=== PATIENT | female | born 1945 | race Caucasian/White ===

== ENCOUNTER 2018-10-23 06:06 | Inpatient (IN) | payer OTHER, BC ==
[2018-10-09 13:25] VITALS: BMI 29.2
[~2018-10-23 06:06] MED LIST: GABAPENTIN 300 MG CAPSULE (FP) PO ONE; ROPIVICAINE 0.2%/MORPH PF/KETOROLAC - 51ML DISP.SYRINGE IA ONE; TRANEXAMIC ACID 1000 MG/10 ML VIAL IVPB ONE; VANCOMYCIN 1,000 MG VIAL (RESTRICTED TO ID ONLY) IVPB ONE; oxyCODONE HCL 10 MG SUSTAINED ACTING TABLET PO ONE
[2018-10-23] MEDS ORDERED: GABAPENTIN 300 MG CAPSULE (FP) ONE (06:52)
[2018-10-23] MEDS ORDERED: PANTOPRAZOLE 40 MG TABLET (FP) ONE (06:52)
[2018-10-23] MEDS ORDERED: CELECOXIB 200 MG CAPSULE ONE (06:52)
[2018-10-23] MEDS ORDERED: oxyCODONE HCL 10 MG SUSTAINED ACTING TABLET ONE (06:53)
[2018-10-23] MEDS ORDERED: MIDAZOLAM HCL 2 MG/2 ML SINGLE DOSE VIAL ONE (07:02)
[2018-10-23] MEDS ORDERED: EPINEPHrine/PF 1 MG/1 ML (1:1,000) AMPULE ONE ×2 (07:02→08:32)
[2018-10-23] MEDS ORDERED: DEXAMETHASONE SOD PHOSPHATE/PF 10 MG/ML SDV ONE (07:02)
[2018-10-23] MEDS ORDERED: ROPIVACAINE HCL 0.5% 30ML VIAL ONE (07:02)
--- NOTE | 2018-10-23 07:25 | HP ---
Admitting History and Physical - Admission Chief Complaint: left hip osteoarthritis x years History of Present Illness: 72-year-old female presents in regard to her left hip. Long-standing history of left hip osteoarthritis. Patient complains of pain, limited range of motion, difficulty ambulating, and difficulty completing activities of daily living. Patient has failed conservative treatment measures including PO medications, injections, exercise programs, and activity modifications. At this point, patient would like to proceed with surgical intervention left total hip arthroplasty - MAKOplasty. History Source: Patient - Past Medical History Gastrointestinal: Yes: GERD - Past Surgical History Additional Past Surgical History: see written history and physical. - Advance Directives Advance Directives: Yes: Health Care Proxy - Smoking History Smoking history: Former smoker Have you smoked in the past 12 months: No If you are a former smoker, when did you quit?: 1975 - Alcohol/Substance Use Hx Alcohol Use: Yes (3 WKLY) Home Medications - Allergies Allergies/Adverse Reactions: Allergies Allergy/AdvReac Type Severity Reaction Status Date / Time nickel Allergy Intermediate NASAL Verified 10/23/18 07:19 CONGESTION No Known Drug Allergies Allergy Verified 10/09/18 13:09 - Home Medications Home Medications: Ambulatory Orders Calcium Carbonate [Tums] 200 mg PO PRN PRN 10/09/18 Famotidine [Pepcid -] 20 mg PO HS 10/09/18 Omeprazole 20 mg PO DAILY 10/09/18 Physical Examination Constitutional: Yes: Well Nourished, No Distress Eyes: Yes: Conjunctiva Clear HENT: Yes: Atraumatic Neck: Yes: Supple Cardiovascular: Yes: Regular Rate and Rhythm Respiratory: Yes: Regular Gastrointestinal: Yes: Soft ...Rectal Exam: Yes: Deferred Musculoskeletal: Yes: Joint Stiffness (left hip) Assessment/Plan 72-year-old female presents in regard to her left hip. Long-standing history of left hip osteoarthritis. Patient complains of pain, limited range of motion, difficulty ambulating, and difficulty completing activities of daily living. Patient has failed conservative treatment measures including PO medications, injections, exercise programs, and activity modifications. At this point, patient would like to proceed with surgical intervention left total hip arthroplasty - MAKOplasty. Pros, cons, risks, benefits, and alternatives of a left total hip arthroplasty were discussed with the patient at length. Patient confirms her understanding and consent to proceed with a left total hip arthroplasty MAKOplasty.
[2018-10-23] MEDS ORDERED: VANCOMYCIN 1,000 MG VIAL (RESTRICTED TO ID ONLY) ONE (07:32)
[2018-10-23] MEDS ORDERED: ceFAZolin SODIUM 1 GM VIAL ONE ×2 (07:32→08:45)
[2018-10-23] MEDS ORDERED: TRANEXAMIC ACID 1000 MG/10 ML VIAL ONE ×3 (07:32→10:49)
[2018-10-23] MEDS ORDERED: BUPIVACAINE HCL/PF 0.5% (5MG/ML) 10 ML VIAL ONE (08:25)
[2018-10-23] MEDS ORDERED: ROPIVICAINE 0.2%/MORPH PF/KETOROLAC - 51ML DISP.SYRINGE IA ONE ×4 (08:28→11:13)
[2018-10-23] MEDS ORDERED: CELECOXIB 200 MG CAPSULE PO ONE (08:45)
[2018-10-23] MEDS ORDERED: PANTOPRAZOLE 40 MG TABLET (FP) PO ONE (08:45)
[2018-10-23] MEDS ORDERED: SODIUM CHLORIDE 0.9% P/F 10 ML VIAL IJ ONE (08:45)
[2018-10-23] MEDS ORDERED: CEFAZOLIN 2 GM in DEXTROSE 5%-WATER - 50 ML IVPB ONE (08:45)
[2018-10-23] MEDS ORDERED: TRANEXAMIC ACID 1000 MG/10 ML VIAL IVPUSH ONE (08:45)
[2018-10-23] MEDS ORDERED: PROPOFOL 20 ML ONE ×3 (08:51)
[2018-10-23] MEDS ORDERED: ePHEDrine SULFATE 50 MG/1 ML AMPULE ONE (09:32)
[2018-10-23] MEDS ORDERED: VANCOMYCIN 1,000 MG VIAL (RESTRICTED TO ID ONLY) IVPB ONE (11:00)
[2018-10-23] MEDS ORDERED: TRANEXAMIC ACID 1000 MG/10 ML VIAL IVPB ONE (11:14)
[2018-10-23] MEDS ORDERED: PROMETHAZINE HCL 25 MG/1 ML VIAL IVPUSH PRN (11:22)
[2018-10-23] MEDS ORDERED: ONDANSETRON 4 MG/2 ML VIAL IVPUSH PRN ×2 (11:22→12:32)
--- NOTE | 2018-10-23 12:29 | OP ---
Operative Note - Note: Operative Date: 10/23/18 Pre-Operative Diagnosis: left hip OA Operation: left JODI DAVID Post-Operative Diagnosis: Same as Pre-op Surgeon: Chano Paez Workforce Manager: eJnnifer Lorenz Anesthesia: Spinal Estimated Blood Loss (mls): 200
[2018-10-23] MEDS ORDERED: CALCIUM CARBONATE 200 MG PO PRN (12:30)
[2018-10-23] MEDS ORDERED: ACETAMINOPHEN 1000 MG/100 ML VIAL (NON FORMULARY) IVPB ONE (12:31)
[2018-10-23] MEDS ORDERED: MAGNESIUM HYDROX 2400MG/30ML ORAL SUSPENSION 30 ML CUP PO PRN (12:32)
[2018-10-23] MEDS ORDERED: MAG HYDROX/AL HYDROX/SIMETH 30 ML UNIT-DOSE CUP PO PRN (12:32)
[2018-10-23] MEDS ORDERED: KETOROLAC TROMETHAMINE 30 MG/1 ML VIAL ONE (12:39)
[2018-10-23] MEDS ORDERED: ACETAMINOPHEN INJECTION 100 ML IVPB ONE (12:39)
[2018-10-23] MEDS ORDERED: traMADol HCL 50 MG TABLET ONE (12:39)
[2018-10-23] MEDS: KETOROLAC TROMETHAMINE 30 MG/1 ML VIAL IVPUSH SCH ×2 (12:45→17:56)
[2018-10-23] MEDS: traMADol HCL 50 MG TABLET PO SCH ×2 (12:45→17:55)
[2018-10-23] MEDS: LACTATED RINGERS SOLUTION 1,000 ML IV SCH ×3 (13:15→14:03)
[2018-10-23] MEDS: CEFAZOLIN 2 GM/D5W 2 GM/50 ML ML IVPB SCH (16:40)
[2018-10-23] MEDS ORDERED: DEXAMETHASONE SOD PHOSPHATE 10 MG/1 ML VIAL IVPB ONE (20:00)
[2018-10-23] MEDS: GABAPENTIN 300 MG CAPSULE (FP) PO SCH (21:17)
[2018-10-23] MEDS: SENNOSIDES/DOCUSATE COMBO (SENNA PLUS) TABLET (UD) PO SCH (21:17)
[2018-10-23] MEDS: CELECOXIB 200 MG CAPSULE PO SCH (21:17)
[2018-10-23] MEDS: ASCORBIC ACID 500 MG TABLET (FP) PO SCH (21:17)
[2018-10-23] MEDS: FAMOTIDINE 20 MG TABLET PO SCH (21:17)
[2018-10-24] MEDS: KETOROLAC TROMETHAMINE 30 MG/1 ML VIAL IVPUSH SCH ×2 (00:40→06:46)
[2018-10-24] MEDS: traMADol HCL 50 MG TABLET PO SCH ×5 (00:50→18:39)
[2018-10-24] MEDS: CEFAZOLIN 2 GM/D5W 2 GM/50 ML ML IVPB SCH (01:00)
[2018-10-24] MEDS ORDERED: VANCOMYCIN 1,000 MG VIAL (RESTRICTED TO ID ONLY) ONE (07:06)
[2018-10-24] MEDS: ASPIRIN 325 MG TABLET PO SCH (07:17)
[2018-10-24 07:50] LABS: CALCIUM 9.3 mg/dl (8.5-10); CREATININE 0.8 mg/dl (0.55-1.3); POTASSIUM 4.4 mmol/L (3.5-5.1)
[2018-10-24 08:10] LABS: HEMATOCRIT 36.5 % (32.4-45.2); HEMOGLOBIN 12.5 GM/dl (10.7-15.3); MCH 31.1 pg (25.7-33.7); MCHC 34.2 g/dl (32.0-36.0); MEAN CELL VOLUME 90.9 fl (80-96); PLATELET COUNT 275 K/MM3 (134-434); RBC 4.01 M/mm3 (3.60-5.2); RDW 13.9 % (11.6-15.6); WHITE BLOOD COUNT 7.9 K/mm3 (4.0-10.8)
[2018-10-24] MEDS: PANTOPRAZOLE 40 MG TABLET (FP) PO SCH (09:10)
[2018-10-24] MEDS: MULTIVITAMINS (DAILY MVI) TABLET (FP) PO SCH (09:10)
[2018-10-24] MEDS: SENNOSIDES/DOCUSATE COMBO (SENNA PLUS) TABLET (UD) PO SCH ×2 (09:10→21:27)
[2018-10-24] MEDS: CELECOXIB 200 MG CAPSULE PO SCH ×2 (09:10→21:27)
[2018-10-24] MEDS: ASCORBIC ACID 500 MG TABLET (FP) PO SCH ×2 (09:10→21:27)
[2018-10-24] MEDS: GABAPENTIN 300 MG CAPSULE (FP) PO SCH ×2 (09:10→21:27)
--- NOTE | 2018-10-24 11:50 | PN ---
Progress Note (short form) - Note Progress Note: ANESTHESIA POSTOP 72 YO FEMALE POD #1 S/P L DAVID, SPINAL AND PNB Patient sitting in chair. Comfortable. Pain adequately controlled. No n/v. VSS, Afebrile Continue current care. Encouraged IS and PT participation. No anesthetic complications
[2018-10-24] MEDS: LACTATED RINGERS SOLUTION 1,000 ML IV SCH (12:16)
[2018-10-24] MEDS ORDERED: traMADol HCL 50 MG TABLET PO ONE (20:00)
--- NOTE | 2018-10-24 20:12 | PN ---
Progress Note (short form) - Note Progress Note: Pt seen and examined. Doing well. AVSS Selected Entries 10/24/18 14:10 Temperature 97.5 F L Pulse Rate 72 Respiratory 20 Rate Blood Pressure 111/56 L O2 Sat by Pulse 95 Oximetry (%) Laboratory Tests 10/24/18 10/24/18 07:00 07:00 WBC 7.9 Hgb 12.5 Hct 36.5 Plt Count 275 Sodium 137 Potassium 4.4 Chloride 105 Carbon Dioxide 22 Anion Gap 10 BUN 18.0 Creatinine 0.8 Gen: NAD LLE: c/d/i, NVID A/P POD#1 s/p L DAVID PT/OOB D/C home in AM
--- NOTE | 2018-10-24 20:17 | DS ---
Physical Examination Vital Signs: Vital Signs Temperature 97.5 F L 10/24/18 14:10 Pulse Rate 72 10/24/18 14:10 Respiratory Rate 20 10/24/18 14:10 Blood Pressure 111/56 L 10/24/18 14:10 O2 Sat by Pulse Oximetry (%) 95 10/24/18 14:10 Labs: CBC, BMP 10/24/18 07:00 10/24/18 07:00 Discharge Summary Reason For Visit: LEFT HIP OSTEOARTHRITIS Current Active Problems Osteoarthritis of left hip (Acute) Procedures: Principal: left lachelle DAVID Hospital Course: Admitted for elective surgery. Procedure performed without complications. Pt received postoperative antibiotic prophylaxis and DVT ppx. Ambulated with physical therapy. Stable for discharge home with outpatient followup. Condition: Stable - Instructions Diet, Activity, Other Instructions: Dr Paez - Hip Replacement Instructions Keep the Aquacel dressing on until removed by Dr. Paez in 10-14 days - it is antibacterial and waterproof and you can shower with it on. Call the office for a follow-up appointment with Dr. Paez in 10-14 days. [phone] Take one enteric-coated Aspirin 325mg daily for 6 weeks to prevent blood clots in your legs. Continue taking Omeprazole 40mg daily to protect against heartburn and ulcers. Take Cephalexin (antibiotic) 3x/day for 10 days to help prevent skin infection. Take Celebrex 200mg daily for 30 days to reduce swelling and inflammation. Take a multivitamin, stool softener and extra Vitamin C supplement daily. For pain: *Mild pain (1-3/10): Take 1 Tramadol tablet every 4 hours as needed. Moderate pain (4-6/10): Take 1 Tramadol tablet and 1 Percocet tablet every 4 hours as needed. Severe pain (7-10/10): Take 1 Tramadol tablet and 2 Percocet tablets every 4 hours as needed. Activity: You can put as much weight on the operative leg as you want. For the first 6 weeks, all you need to do is walk around the house, go up/down stairs, and sit down/get up. After 6 weeks when everything is healed (and bone has grown into the implant) you will be sent for more intensive outpatient physical therapy. Always use a walker or cane for balance and to prevent falls. Expect to see swelling / bruising from the operative site all the way down to your toes. Wear the Compression stocking on the operative side during the day to minimize how much swelling there is in your foot/ankle. Don't wear the stocking at night. You don't have to wear the stocking on the other side. Disposition: [facility]/HOME HEALTH CARE - Home Medications Comprehensive Discharge Medication List: Ambulatory Orders Calcium Carbonate [Tums] 200 mg PO PRN PRN 10/09/18 Famotidine [Pepcid -] 20 mg PO HS 10/09/18 Omeprazole 20 mg PO DAILY 10/09/18 Ascorbic Acid [Vitamin C -] 500 mg PO BID tablet 10/24/18 Aspirin [ASA -] 325 mg PO DAILY@0800 tablet 10/24/18 Celecoxib [CeleBREX -] 200 mg PO DAILY #30 capsule 10/24/18 Cephalexin Monohydrate [Keflex -] 500 mg PO TID #30 capsule 10/24/18 Multivitamins [Multivit ([facility] Formulary)] 1 tab PO DAILY tab 10/24/18 Oxycodone HCl/Acetaminophen [Percocet 5-325 mg Tablet] 1 - 2 tab PO Q4H PRN #60 tablet MDD 10 10/24/18 Sennosides/Docusate Sodium [Pericolace -] 2 tablet PO BID tablet 10/24/18 traMADol HCL [Ultram -] 50 mg PO Q4H PRN #42 tablet MDD 6 10/24/18
[2018-10-24] MEDS: FAMOTIDINE 20 MG TABLET PO SCH (21:27)
[2018-10-25] MEDS: traMADol HCL 50 MG TABLET PO SCH ×3 (00:30→13:58)
[2018-10-25] MEDS: ASPIRIN 325 MG TABLET PO SCH (08:21)
[2018-10-25 08:39] LABS: HEMATOCRIT 33.5 % (32.4-45.2); HEMOGLOBIN 11.2 GM/dl (10.7-15.3); MCHC 33.5 g/dl (32.0-36.0); MEAN CELL VOLUME 92.3 fl (80-96); MEAN PLT VOLUME 9.3 fl (7.5-11.1); PLATELET COUNT 230 K/MM3 (134-434); RBC 3.63 M/mm3 (3.60-5.2); RDW 14.2 % (11.6-15.6); WHITE BLOOD COUNT 8.6 K/mm3 (4.0-10.8)
[2018-10-25] MEDS: CELECOXIB 200 MG CAPSULE PO SCH (10:02)
[2018-10-25] MEDS: MULTIVITAMINS (DAILY MVI) TABLET (FP) PO SCH (10:02)
[2018-10-25] MEDS: SENNOSIDES/DOCUSATE COMBO (SENNA PLUS) TABLET (UD) PO SCH (10:02)
[2018-10-25] MEDS: PANTOPRAZOLE 40 MG TABLET (FP) PO SCH (10:02)
[2018-10-25] MEDS: ASCORBIC ACID 500 MG TABLET (FP) PO SCH (10:02)
[2018-10-25] MEDS: GABAPENTIN 300 MG CAPSULE (FP) PO SCH (10:02)
[2018-10-25] MEDS: LACTATED RINGERS SOLUTION 1,000 ML IV SCH (13:58)
[2018-10-25 14:15] VITALS: BP 108/58; PULSE 62; TEMP 98.4
--- NOTE | 2018-10-27 12:47 | PATH ---
Surgical Pathology Report Patient Name: RIVAS SHIPLEY Med. Rec. #: [id number] /Age/Gender: 1945 (Age: 72) / F Account: [id number] Location: [facility] Taken: 10/23/2018 Received: 10/23/2018 Reported: 10/27/2018 Physicians: Chano Paez M.D. Specimen(s) Received LEFT FEMORAL HEAD Clinical History Left hip osteoarthritis Final Diagnosis FEMORAL HEAD, LEFT, TOTAL HIP REPLACEMENT: DEGENERATIVE JOINT DISEASE. Electronically Signed Sarita Wilder M.D. Gross Description Received in formalin, labeled "left femoral head," is a 4.8 x 4.8 x 4.3 cm. femoral head with a 0.7 cm in length portion of femoral neck attached. The margin of resection is smooth. There is a 3.6 cm in greatest dimension area of eburnation identified. The remaining articular surface is desai and diffusely granular. The underlying trabecular bone is yellow and hard. A containers sales representative section is submitted in one cassette, following decalcification. 10/24/2018 [facility]10/24/2018
== END 2018-10-25 15:07 | disposition home health service (06) | DRG 470 ==
LOC: FM/S 06:06
PROVIDERS: ADMIT Student in an Organized Health Care Education/Training Program; ATTEND Student in an Organized Health Care Education/Training Program
PROC: 8E0Y0CZ Robotic Assisted Procedure of Lower Extremity, Open Approach (ICD-10-PCS; 2018-10-23)
PROC: 0SRB0JZ Replacement of Left Hip Joint with Synthetic Substitute, Open Approach (ICD-10-PCS; principal; 2018-10-23 09:14)
DX: M16.12 Unilateral primary osteoarthritis, left hip (principal); K21.9 Gastro-esophageal reflux disease without esophagitis; Z87.891 Personal history of nicotine dependence
CPT/HCPCS: 36415; 73502-TC-LT-FY; 80048; 85027; 88305-TC; 88311-TC; 94760; 97116-GP; 97162-GP; J0131; J1100